=== PATIENT | female | born 1960 | race Caucasian/White ===

== ENCOUNTER 2016-08-16 14:34 | Day surgery (SDC) | payer BC ==
[~2016-08-16] VITALS: Ht 180.3 cm; Wt 131.6 kg
[2016-08-16] VITALS (9 sets, daily range): BP systolic 113–158; BP diastolic 54–80; PULSE 62–100; TEMP 97.4–98.7
[2016-08-16] MEDS ORDERED: LIPITOR 10MG10 MG PO (14:37)
[2016-08-16] MEDS ORDERED: SINGULAIR 110 MG/TAB PO (14:37)
[2016-08-16] MEDS ORDERED: ZYRTEC 10MG10 MG PO (14:38)
[2016-08-17 01:00] VITALS: BP 116/71; PULSE 68; TEMP 98.1
[2016-08-17 04:39] VITALS: BP 106/66; PULSE 69; TEMP 97.9
[2016-08-17 08:54] VITALS: BP 128/72; PULSE 81; TEMP 97.7
[2016-08-17 13:53] VITALS: BP 133/73; PULSE 83; TEMP 98.7
== END 2016-08-17 17:42 | disposition home or self-care (01) ==
LOC: SDCO 14:34 → SURG 14:46 → SDCO 08-17 17:42
DX: K35.80 Unspecified acute appendicitis (principal)
CPT/HCPCS: OP; J1100; J1170; J1885; J2405; J2543; J2704; J3010; J7030; J7050; J7120